=== PATIENT | male | born 1960 | race Caucasian/White ===

== ENCOUNTER 2024-02-04 13:01 | Emergency (ER) | payer BC, SELFPAY ==
[2024-02-04 13:03] VITALS: BP 160/94
[2024-02-04 13:26] LABS: % Basophils 0.5 % (0-2); % Eosinophils 0.3 % (0-6); % Immature Granulocytes 0.6 % (0-0.5); % Lymphocytes 23.2 % (20.5-51.1); % Monocytes 10.8 % (1.7-9.3); % Neutrophils 64.6 % (42.2-75.2); Absolute Basophils 0.1 10^3/uL (0-0.2); Absolute Immature Granulocytes 0.1 10^3/uL (0-0.05); Absolute Lymphocytes 2.2 10^3/uL (1.2-3.4); Absolute Neutrophils 6.1 10^3/uL (1.4-6.5); Hematocrit 44.1 % (39.0-52.0); Hemoglobin 15.2 g/dL (13.0-18.0); Mean Corp Hgb Conc. 34.5 g/dL (33.0-37.0); Mean Corpuscular Hgb 30.3 pg (27.0-31.0); Mean Platelet Volume 10.1 fL (7.4-10.4); Nucleated Red Blood Cells % 0 % (-); Platelet Count 288 10^3/uL (130-400); Red Blood Cell Count 5.01 10^6/uL (4.70-6.10); Red Cell Dist. Width 12.4 % (11.5-14.5); White Blood Cell Count 9.4 10^3/uL (4.8-10.8)
[2024-02-04 13:32] LABS: Blood Urea Nitrogen 11 mg/dl (9-20); Calcium 9.6 mg/dl (8.4-10.2); Carbon Dioxide 29 mmol/L (22-30); Chloride 104 mmol/L (98-107); Glucose 122 mg/dl (70-99); Potassium 3.9 mmol/L (3.5-5.1); Sodium 137 mmol/L (135-145); eGFR > 60.00
[2024-02-04 13:35] LABS: Alcohol None Detected
--- NOTE | 2024-02-04 13:37 | ED.GENMED ---
History of Present Illness
General
Chief Complaint: Crisis Evaluation
Time Seen by Provider: 02/04/24 13:07
Travel History
Have you had any contact with someone who has COVID-19?: No
Do you have any symptoms of coronavirus? Fever > 100 degrees, chills, cough, shortness of breath, sore throat, loss of taste or smell, muscle aches, or headache?: No
History of Present Illness
History of Present Illness:
63-year-old male with history of depression presents to the emergency department for evaluation of suicidal ideation. He reports passive suicidal thoughts over the past 6 weeks, denies any detailed plan. No history of suicidal attempt. Contracts
for safety while in the emergency department. He presents to the ER for medical clearance from the [facility] crisis department. He denies any medical complaints at this time. Has No underlying medical problems
Review of Systems
Review of Systems
Allergies reviewed?: Yes
All Other Systems: ROS reviewed and negative except as documented in HPI and ROS
Phy Exam
Physical Exam
Physical Exam:
GEN: Well appearing, NAD, WDWN
HEENT: PERRLA oral mucosa moist, no scleral icterus
Cardiac: Regular rate and rhythm, no murmurs
Lung: No respiratory distress, no tachypnea, lungs clear to auscultation bilaterally
MSK: No gross deformity or injuries
Skin: Good color, no pallor or jaundice, no rashes
Neuro: AO x3, moves all extremities freely
Psych: Calm, cooperative
Course
Orders/Labs/Results
Orders:
Orders
02/04/24 13:10
Alcohol Urgent
Basic Metabolic Panel Urgent
Complete Blood Count/With Diff Urgent
Urine Drug Abuse Screen Urgent
Date Specimen was Collected: 02/04/24
Time Specimen was Collected: 13:04
Abnormal Lab Results
02/04/24
13:10
Abs Immat Gran (auto) 0.1 H 10^3/uL
(0-0.05)
Absolute Monos (auto) 1.0 H 10^3/uL
(0.1-0.6)
Immature Gran % 0.6 H %
(0-0.5)
Monocytes % 10.8 H %
(1.7-9.3)
Glucose 122 H mg/dl
(70-99)
02/04/24 13:10
02/04/24 13:10
Vital Signs
Initial and Last Documented VS:
Initial Vital Signs
Temp Pulse Resp BP Pulse Ox
98.1 F 88 17 160/94 97
02/04/24 13:03 02/04/24 13:03 02/04/24 13:03 02/04/24 13:03 02/04/24 13:03
Last Documented Vital Signs
Temp Pulse Resp BP Pulse Ox
98.1 F 88 17 160/94 97
02/04/24 13:03 02/04/24 13:03 02/04/24 13:03 02/04/24 13:03 02/04/24 13:03
MDM/Problems Addressed
MDM/Problems Addressed:
No medical complaints, contracts for safety. Passive SI w/o plan. Hopeful to sign in for inpatient treatment. Will d/c to crisis for further care
*Critical Care Note
Total Time (30-74mins, 75-104mins- exclusive of procedures): Not Applicable
ED Attending Note
-
Portions of this chart may have been created with voice recognition software.� Occasional wrong word or��sound alike� substitutions may have occurred due to the inherent limitations of voice recognition software.
Discharge Plan
Departure
Patient Disposition: [facility]
Date of Disposition: 02/04/24
Time of Disposition: 14:00
Patient with high blood pressure during this ER visit?: Yes
Discharge Problem:
Depression with suicidal ideation
Referrals:
Ilene Jung MD [Family Provider] -
Activity Restrictions/Additional Instructions:
Nathaniel is medically cleared for crisis evaluation
Interventions
Interventions:
*Risk Screen - Suicide Last Done: 02/04/24 14:07
*General Assessment Last Done: 02/04/24 14:07
*Neglect/Abuse Screening Last Done: 02/04/24 14:07
*ED COVID-19 Vaccine History Last Done: 02/04/24 13:03
*Nursing Disposition Last Done: 02/04/24 14:08
ED-Psychological Assessment Last Done: 02/04/24 14:07
Discharge Date and Time
Discharge Date/Time: 02/04/24 14:09
Print Language: [id number]
[2024-02-04 13:41] LABS: Amphetamines Negative (Negative); Barbiturates Negative (Negative); Benzodiazepines Negative (Negative); Buprenorphine Negative (Negative); Cocaine Negative (Negative); Marijuana Negative (Negative); Methadone Negative (Negative); Methamphetamines Negative (Negative); Opiates Negative (Negative); Phencyclidine Negative (Negative); Tricyclic Antidepressants Negative (Negative)
== END 2024-02-04 14:09 ==
LOC: EMR 13:01
PROVIDERS: Emergency Medicine; EMERGENCY PHYSICIAN Emergency Medicine; FAMILY PHYSICIAN Family Medicine
DX: R45.851 Suicidal ideations (principal); F32.A Depression, unspecified; R03.0 Elevated blood-pressure reading, without diagnosis of hypertension
CPT/HCPCS: 99285; 80048; 80306; 82077; 85025